=== PATIENT | male | born 1965 | race Caucasian/White ===

== ENCOUNTER 2024-01-28 08:32 | Day surgery (SDC) | payer OTHER ==
[~2024-01-28] VITALS: Ht 170.2 cm; Wt 86.2 kg
[2024-01-28] MEDS ORDERED: LIDOCAINE 2% 100 MG/5 ML UJET TP ONE (10:15)
[2024-01-28] MEDS ORDERED: fentaNYL citrate 0.05 MG/ML VIAL ONE (10:15)
[2024-01-28] MEDS: fentaNYL citrate 0.05 MG/ML VIAL IVP ONE (11:53)
[2024-01-28] MEDS: LIDOCAINE 2% 100 MG/5 ML UJET TP ONE (12:03)
[2024-01-28] MEDS ORDERED: fentaNYL citrate 0.05 MG/ML VIAL IVP SCH (13:45)
[2024-01-28] MEDS ORDERED: LIDOCAINE 2% 100 MG/5 ML UJET TP SCH (14:00)
== END 2024-01-28 13:07 | disposition home or self-care (01) ==
LOC: MDS 08:32 → MMU 08:59 → MDS 13:07
PROVIDERS: ATTEND Internal Medicine Gastroenterology
DX: Z12.11 Encounter for screening for malignant neoplasm of colon (principal); K57.30 Diverticulosis of large intestine without perforation or abscess without bleeding; K63.5 Polyp of colon; I10 Essential (primary) hypertension; Z85.828 Personal history of other malignant neoplasm of skin; Z85.46 Personal history of malignant neoplasm of prostate; Z79.899 Other long term (current) drug therapy; Z98.890 Other specified postprocedural states
CPT/HCPCS: 45380; J3010